=== PATIENT | male | born 2000 | race Caucasian/White ===

== ENCOUNTER 2019-04-19 10:22 | Emergency (ER) | payer OTHER ==
--- NOTE | 2019-04-19 11:02 | UC ---
Hand/Wrist HPI - HPI Summary HPI Summary: 19-year-old male who states that he felt today on his right hand. He has pain and swelling to the lateral dorsum of his right hand with more pain when he flexes his fifth finger. He states his last tetanus is up-to-date. - History Of Current Complaint Stated Complaint: S/P FALL RIGHT HAND INJURY Time Seen by Provider: 04/19/19 10:57 Hx Obtained From: Patient ?: No Onset/Duration: Sudden Onset Severity Initially: Moderate Severity Currently: Moderate Character Of Pain: Dull, Aching Aggravating Factor(s): Movement, Flexion - Patient has more pain with movement of his right fifth finger. Alleviating Factor(s): Nothing Associated Signs And Symptoms: Positive: Swelling - Allergies/Home Medications Allergies/Adverse Reactions: Allergies Allergy/AdvReac Type Severity Reaction Status Date / Time No Known Allergies Allergy Verified 04/19/19 11:00 Home Medications: Home Medications Ibuprofen TAB* [Advil TAB*] 200 mg PO Q6H PRN 04/19/19 [History Confirmed ] PMH/Surg Hx/FS Hx/Imm Hx Previously Healthy: Yes - Surgical History Surgical History: None - Family History Known Family History: Positive: Non-Contributory - Social History Alcohol Use: None Substance Use Type: None Smoking Status (MU): Never Smoked Tobacco - Immunization History Vaccination Up to Date: Yes Review of Systems All Other Systems Reviewed And Are Negative: Yes Musculoskeletal: Positive: Other: - Pain lateral dorsum right hand with swelling and with flexion of his fifth finger. Is Patient Immunocompromised?: No Physical Exam Triage Information Reviewed: Yes Appearance: Well-Appearing, No Pain Distress, Well-Nourished Vital Signs Reviewed: Yes Musculoskeletal: Positive: Other: - Good peripheral pulses, neuro sensation and capillary refill, good finger strength with flexion and extension against resistance, wrist is nontender, navicular nontender, swelling to the lateral dorsum of his right hand with tenderness on palpation. Hand/Wrist Course/Dx - Course Course Of Treatment: X-ray right hand:FINDINGS: There is a transverse minimally comminuted fracture through the mid diaphysis of the fifth metacarpal. The distal fragment is displaced posterior and medial approximately one half shaft diameter and demonstrates anterior angulation relative the proximal fragment. Joint spaces appear maintained. IMPRESSION: DISPLACED ANGULATED FRACTURE OF THE MID DIAPHYSIS OF THE FIFTH METACARPAL. I was able to make an appointment with Dr. Garnica, orthopedist, for tomorrow morning and at the direction of Dr. Deutsch I applied an ulnar gutter splint. I would prefer the patient be seen today, and I was able to get him an appointment with Dr. Davis in [place] at 2:00 PM today. The point with Dr. Garnica was canceled. Ulnar gutter splint was applied without difficulty and the patient tolerated the procedure well. He is to elevate his hand as much as possible and go there at 2:00 today. - Differential Dx/Diagnosis Provider Diagnosis: Fractured hand Discharge ED - Sign-Out/Discharge Documenting (check all that apply): Patient Departure All imaging exams completed and their final reports reviewed: Yes - Discharge Plan Condition: Fair Disposition: HOME Patient Education Materials: Hand Fracture (ED) Referrals: Gabo Welch MD [Primary Care Provider] - Beata Davis MD [Medical Doctor] - Additional Instructions: Follow-up with Dr. Davis at 2:00 PM today at [address] [place] [address] [facility] their office number is [phone]. Keep your hand elevated as much as possible and keep the splint in place until seen by them. They we will write you a work note. - Billing Disposition and Condition Condition: FAIR Disposition: Home
[2019-04-19 11:07] VITALS: BP 159/69
== END 2019-04-19 12:28 | disposition home or self-care (01) ==
LOC: UCCORT 10:22
DX: S62.306A Unspecified fracture of fifth metacarpal bone, right hand, initial encounter for closed fracture (principal); W19.XXXA Unspecified fall, initial encounter; Y92.9 Unspecified place or not applicable
CPT/HCPCS: 26600; 26755; 99201; G0463

== ENCOUNTER 2019-04-26 13:28 | Day surgery (SDC) | payer OTHER ==
[~2019-04-26 13:28] MED LIST: Acetaminophen TAB* 325 MG PO PRN; Buffered Lidocaine 1% SYRIN* 1 ML/SYRINGE INTRADERM ONE; Dexamethasone TAB* 4 MG ONE; Dexamethasone TAB* 4 MG PO ONE; DiMENhydriNATE IV* 50 MG/ML VIAL IV PUSH PRN; Famotidine IV* 10 MG/ML 2 ML (20 mg) IV ONE; Famotidine IV* 10 MG/ML 2 ML (20 mg) ONE; HYDROmorphone INJ1* 1 MG/ML SYRINGE IV PRN; Lactated Ringers 1000 ML Bag* 1,000 ML IV SCH; Naloxone* 0.4 MG/ML 1 ML VIAL IV PRN; Ondansetron ODT TAB* 4 MG ONE; Ondansetron ODT TAB* 4 MG PO ONE; PROCHLORPERAZINE INJ 5 MG/ML 2 ML VIAL IV PRN; ceFAZolin 2 GM PREMIX in ORs 2 GM/50 ML BAG ONE; fentaNYL* 50 MCG/ML 2 ML VIAL (100 MCG VIAL) IV PRN; oxyCODONE TAB* 5 MG TAB PO PRN
[2019-04-26] MEDS ORDERED: fentaNYL* 50 MCG/ML 2 ML VIAL (100 MCG VIAL) ONE (15:09)
[2019-04-26] MEDS ORDERED: Midazolam* 1 MG/ML 5 ML VIAL (5 MG) ONE (15:10)
[2019-04-26] MEDS ORDERED: KETAMINE HCL* 50 MG/ML 10 ML VIAL ONE (15:10)
[2019-04-26] MEDS ORDERED: Propofol* 10 MG/ML 20 ML BTL ONE (16:50)
[2019-04-26] MEDS ORDERED: Lidocaine 2% PF * 5 ML VIAL ONE (16:50)
[2019-04-26] MEDS ORDERED: Ketorolac INJ* 30 MG/ML 1 ML VIAL ONE (16:50)
[2019-04-26] MEDS ORDERED: HYDROcodone/ACETAMIN 5-325 MG* 1 TAB ONE (17:41)
[2019-04-26 18:08] VITALS: BP 144/78
--- NOTE | 2019-04-27 02:47 | OP ---
DATE OF OPERATION: 04/26/19 [facility] DATE OF : 89 SURGEON: Gabo Garnica MD. FOUNDRY PATTERNMAKER: ANNEMARIE Gabriel. ANESTHESIOLOGIST: Dr. Ross. ANESTHESIA: General. PRE-OP DIAGNOSIS: Right fifth metacarpal shaft displaced fracture. POST-OP DIAGNOSIS: Right fifth metacarpal shaft displaced fracture. OPERATIVE PROCEDURE: Open reduction internal fixation of right fifth metacarpal fracture. INDICATIONS: Haseeb has a very displaced fifth metacarpal shaft fracture. We talked about treatment options. He did want to proceed with surgery. He understands there are risks and benefits. ESTIMATED BLOOD LOSS: 2 mL. COMPLICATIONS: None. FINDINGS: See above and below. DESCRIPTION OF PROCEDURE: Haseeb was seen in the preoperative holding area. The correct site, side, and procedure were identified. We came back to the operating room. The arm was prepped and draped in the usual fashion and a time- out was performed. I went ahead and made a small incision over the distal MCP joint. I then placed a guidewire into the appropriate location in the metacarpal head, advanced it down to the subchondral bone. I was able to get the fracture reduced. Once the guidewire was in place, I then brought in my drill bit and I drilled a 4.5 mm screw. I measured and selected a 50 mm screw. This was an [employer] metacarpal screw, a 4.5 x 15 mm. I went ahead and placed the screw in a standard fashion. This was a nice length. The fracture was in perfect reduction. The bone was very stable. We went ahead and irrigated out the wound. The skin was closed with 4-0 nylon suture. The wound was dressed and a short arm ulnar gutter splint was applied. He was taken to recovery room in stable condition. [id number]/CPS #: [id number] [facility]
== END 2019-04-26 18:05 | disposition home or self-care (01) ==
LOC: OREAST 13:28
PROVIDERS: ATTEND Orthopaedic Surgery Hand Surgery
DX: S62.326A Displaced fracture of shaft of fifth metacarpal bone, right hand, initial encounter for closed fracture (principal); J45.909 Unspecified asthma, uncomplicated; W19.XXXA Unspecified fall, initial encounter; Y92.008 Other place in unspecified non-institutional (private) residence as the place of occurrence of the external cause; F17.200 Nicotine dependence, unspecified, uncomplicated
CPT/HCPCS: 76000; A9270-GY; C1776; J0690; J1885; J2250; J2704; J3010; J8540